=== PATIENT | female | born 1975 | race Caucasian/White ===

== ENCOUNTER 2019-09-25 18:03 | Emergency (ER) | payer OTHER, SELFPAY ==
[2019-09-25 18:05] VITALS: BP 124/85; PULSE 109; RESP 20; TEMP 36.6; O2SAT 97; BMI 23.9
[2019-09-25 18:22] LABS: Microscopic, Urine URINE MICROSCOPIC (MICROSCOPIC)
--- NOTE | 2019-09-25 18:24 | HMH.EDABDPAI ---
ED Disposition Clinical Impression: Abdominal pain Qualifiers: Abdominal location: right upper quadrant Qualified Code(s): R10.11 - Right upper quadrant pain Disposition: Home, Self-Care Condition on Discharge: Good Instructions: DI for Abdominal Pain-Adult Additional Instructions: Follow-up with your GI doctor and/or general surgeon for further evaluation and management. Return to the emergency department for any acute new concerns. Referrals: Kianna Duke [Primary Care Provider] - 3 days - Critical Care Critical Care Time: No Attestation: On 09/25/19, the high probability of a clinically significant, sudden or life threatening deterioration of the following system(s) required my full and direct attention, intervention and personal management. The time I documented below is in addition to time spent performing reported procedures but includes the following listed in this critical care notation. Medical Decision Making - Medical Records Medical records reviewed: Yes: I reviewed the patient's medical records. - Vj Inquiry Pt receiving controlled substance: No Vital Signs: 09/25/19 18:05 Temperature 98 F Temperature Source Oral Pulse Rate [Right] 109 H Respiratory Rate 20 Blood Pressure [Right Arm] 124/85 Blood Pressure Mean [Right Arm] 98 02 Sat by Pulse Oximetry 97 - Lab Data Lab Results 09/25/19 18:17: Urine Color Yellow, Urine Appearance Clear, Urine pH 8.0, Ur Specific [place] 1.015, Urine Protein Negative, Urine Glucose (UA) Negative, Urine Ketones Negative, Urine Blood Negative, Urine Nitrate Negative, Urine Bilirubin Negative, Urine Urobilinogen 0.2, Ur Leukocyte Esterase Negative, Urine WBC Occasional, Amorphous Sediment Trace 09/25/19 18:17: Urine HCG, Qual Negative 09/25/19 18:24: WBC 9.2, RBC 4.60, Hgb 13.3, Hct 40.7, MCV 88.4, MCH 28.9, MCHC 32.7, RDW 12.6, Plt Count 282, MPV 7.8, Neut % (Auto) 62.9, Lymph % (Auto) 30.1, [place] % (Auto) 3.9, Eos % (Auto) 2.4, Baso % (Auto) 0.6, Neut # (Auto) 5.8, Lymph # (Auto) 2.8, [place] # (Auto) 0.4, Eos # (Auto) 0.2, Baso # (Auto) 0.1 09/25/19 18:24: Sodium 140, Potassium 3.9, Chloride 104, Carbon Dioxide 26, Anion Gap 13.9, BUN 10, Creatinine 1.00, Estimated Creat Clear 69, Estimated GFR 60, Est GFR ( Amer) 73, Glucose 99, Calcium 9.8, Total Bilirubin 0.4, AST 25, ALT 15, Alkaline Phosphatase 64, Total Protein 7.7, Albumin 4.8, Globulin 2.9, Albumin/Globulin Ratio 1.7, Lipase 86 Result diagrams: 09/25/19 18:24 09/25/19 18:24 Orders (Tests/Meds): ED MEDICATIONS Discontinued Medications Generic Name Dose Route Start Last Admin Trade Name Freq PRN Reason Stop Dose Admin Ioversol 75 ml 09/25/19 18:49 09/25/19 18:50 Rad-Optiray 350 100ml Vial IV 09/25/19 18:50 75 ml ONCE ONE Administration Protocol Sodium Chloride 10 ml 09/25/19 18:49 09/25/19 18:50 Rad-Saline Flush 10ml Syringe IV 09/25/19 18:50 10 ml ONCE ONE Administration ORDERS Category Date Time Status CT abdomen pelvis w con Stat Cat Scan 09/25/19 18:30 Taken - CT Data CT Scan: Abdomen, Pelvis Time Received: 19:[address] Reviewed: Yes: I have reviewed the patient's CT results Findings Narrative: No acute findings. Medical Decision Narrative: Labs are reassuring with no signs of biliary obstruction, choledocholithiasis, no significant leukocytosis that would suggest acute intra-abdominal infection. CT scan shows no signs of diverticulitis, dropped biliary stone, perforated viscus, bowel obstruction, other acute intra-abdominal process. Urinalysis with no infection. Discharged home to follow-up outpatient with GI and/or general surgery for further evaluation. Abdominal Pain HPI - General Stated Complaint: Nausa.Abd pain Time Seen by Provider: 09/25/19 18:24 Mode of Arrival: Ambulatory Source of Information: Patient Limitations: No Limitations - History of Present Illness HPI narrative: This is a 44-year-old female wi
[2019-09-25 18:27] LABS: Appearance,Urine CLEAR (Clear); Bilirubin,Urine Negative (Negative); Blood, Urine Negative (Negative); Color,Urine YELLOW (Yellow); Glucose,Urine (UA) Negative (Negative); Ketones,Urine Negative (Negative); Leukocyte Esterase,Urine Negative (Negative); Nitrate,Urine Negative (Negative); Protein,Urine Negative (Negative); Specific Gravity, Urine 1.015 (1.005-1.030); Urobilinogen,Urine 0.2 EU/dl (0.2)
[2019-09-25 18:30] LABS: Amorphous Sediment,Urine Trace /lpf; Urine Pregnancy, HCG Qual. Negative (Negative); WBC,Urine Occasional #/hpf (0-3)
--- NOTE | 2019-09-25 18:30 | CT_ITS ---
PROCEDURE: CT ABDOMEN PELVIS W CON CLINICAL INDICATION: epigastric/RUQ pain Epigastric pain, right upper quadrant pain, nausea COMPARISON: No exams were available for comparison TECHNIQUE: IV Contrast: 75ML OPTIRAY 350 Oral Contrast none Axial images obtained with sagittal and coronal reformats. All CT scans at the facility use one or more dose reduction, viz: automated exposure control, ma/kV adjustment per patient size (including targeted exams where dose is matched to indication, i.e. head), or iterative reconstruction technique. FINDINGS: LOWER THORAX: 4 mm noncalcified nodules present in the right lower lobe anteriorly near the major fissure. There is minimal thickening of the pericardium ABDOMEN & PELVIS: Post cholecystectomy change. The liver, spleen, and adrenal glands have an unremarkable appearance. There is a 4 mm hypodensity in the mid aspect of the body of the pancreas. This is nonspecific and too small to categorize. There are multiple bilateral renal calculi measuring up to 4 mm in each kidney. No hydronephrosis. No ureteral calculi No intestinal obstruction or free air. No evidence of appendicitis or diverticulitis. The uterus is retroverted with an IUD in place. Scattered hyperdensities are present within the colon consistent with ingested material. There is a mild amount of retained colonic feces No acute bony anomaly. IMPRESSION: 1. Bilateral nonobstructing nephrolithiasis 2. 4 mm right lower lobe nodule. 3. IUD in place within the retroflexed uterus. 4. Mild amount of retained colonic feces. Dictated by: Jose Gaytan MD 09/26/2019 08:18 Electronically signed by Jose Gaytan MD in [place] 09/26/2019 08:18
[2019-09-25 18:32] LABS: Basophils # 0.1 K/mm3 (0-0.2); Basophils % 0.6 % (0.1-2.0); Eosinophils # 0.2 K/mm3 (0.0-0.4); Eosinophils % 2.4 % (0.1-12.0); Hematocrit 40.7 % (37.0-47.0); Hemoglobin 13.3 g/dL (12.2-16.2); Lymphocytes # 2.8 K/mm3 (0.7-4.5); Lymphocytes % 30.1 % (10-50); Mean Corpuscular HGB Conc 32.7 g/dL (31.8-35.4); Mean Corpuscular Hemoglobin 28.9 pg (27.0-31.2); Mean Corpuscular Volume 88.4 fl (81-99); Mean Platelet Volume 7.8 fl (7.4-10.4); Monocytes # 0.4 K/mm3 (0.1-1.0); Monocytes % 3.9 % (1.7-9.3); Neutrophils # 5.8 K/mm3 (1.8-7.8); Neutrophils % 62.9 % (37.0-80.0); Platelet Count 282 K/mm3 (142-424); Red Cell Distribution Width 12.6 % (11.5-17.5); White Blood Count 9.2 K/mm3 (4.8-10.8)
[2019-09-25 18:38] LABS: Chloride 104 mmol/L (98-107)
[2019-09-25 18:39] LABS: Potassium 3.9 mmoL/L (3.5-5.1); Sodium 140 mmol/L (136-145)
[2019-09-25 18:41] LABS: Alanine Aminotransferase 15 U/L (12-78); Aspartate Amino Transferase 25 U/L (14-36); Blood Urea Nitrogen 10 mg/dl (7-17); Creatinine Clearance Estimated 69 mL/min (50-200); Estimated Glomerular Filt Rate 60 ml/min (>60); GFR (African American) 73 ML/MIN (>60)
[2019-09-25 18:42] LABS: Albumin Level 4.8 g/dl (3.5-5.0); Albumin/Globulin Ratio 1.7 (1.1-1.8); Alkaline Phosphatase 64 U/L (38-126); Anion Gap 13.9 mEq/L (5-15); Bilirubin,Total 0.4 mg/dl (0.2-1.3); Calcium 9.8 mg/dl (8.4-10.2); Carbon Dioxide 26 mmol/L (22.0-30.0); Globulin 2.9 g/dL (1.3-3.2); Glucose 99 mg/dl (74-100); Lipase 86 U/L (23-300); Total Protein,Serum 7.7 g/dl (6.3-8.2)
[2019-09-25 20:27] VITALS: BP 124/91; PULSE 94; RESP 15; TEMP 36.7; O2SAT 97
== END 2019-09-25 20:30 | disposition home or self-care (01) ==
PROVIDERS: Emergency Provider Emergency Medicine; PCP Family Medicine
DX: R10.11 Right upper quadrant pain (principal); F41.9 Anxiety disorder, unspecified; Z88.2 Allergy status to sulfonamides; Z88.1 Allergy status to other antibiotic agents
CPT/HCPCS: 74177; 80053; 81001; 81025; 83690; 85025; 99283; Q9967

== ENCOUNTER → 2019-10-30 11:13 | Outpatient (CLI) | payer OTHER, SELFPAY ==
[2019-10-30 14:12] LABS: Coronavirus 19 IgG Antibody Negative (Negative); Coronavirus 19 IgM Antibody Negative (Negative)
== END ==
PROVIDERS: Visit Provider Internal Medicine Gastroenterology
DX: Z01.818 Encounter for other preprocedural examination (principal)
CPT/HCPCS: 36415; 86328

== ENCOUNTER 2019-11-02 13:13 | Day surgery (SDC) | payer OTHER, SELFPAY ==
--- NOTE | 2019-10-29 13:55 | SUR.PREOP ---
10/29/2019 @ 9027--PHONE CALL MADE TO PATIENT. PATIENT UNDERSTANDS THAT LAB WORK AND COVID TESTING NEEDS TO BE COMPLETED @ 1100 ON 10/30/2019. PATIENT UNDERSTANDS IF LAB WORK AND COVID-19 TESTS ARE NOT COMPLETED BY 12PM ON THAT DATE, THE SURGERY SCHEDULED WILL BE CANCELLED AND RESCHEDULED FOR ANOTHER TIME.
[2019-11-02] VITALS (7 sets, daily range): BP systolic 115–131; BP diastolic 75–84; PULSE 55–87; RESP 16–20; TEMP 36.4–37.1; O2SAT 98–100; BMI 24.4
--- NOTE | 2019-11-02 14:16 | FL_ITS ---
PROCEDURE: FL ERCP CLINICAL INDICATION: elevated enzymes, RUQ PAIN,NAUSEA COMPARISON: No exams were available for comparison FINDINGS: Fluoroscopy time: 1 minutes and 23 seconds Select images submitted from the ERCP showing normal caliber common bile duct. No obvious internal filling defects evident. There may be spasm at the sphincter of old E with abrupt termination of the distal aspect of the common bile duct. Please correlate with endoscopic findings. There has been a prior cholecystectomy. The cystic duct is not well demonstrated in the pancreatic duct was not cannulated. 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 Please correlate with endoscopic findings Dictated by: Jose Gaytan MD 11/12/2019 10:33 Electronically signed by Jose Gaytan MD in [place] 11/12/2019 10:33
--- NOTE | 2019-11-02 14:27 | HMH.PROC ---
[facility] Procedure Note Procedure Note:: ERCP procedure Report: Endoscopic retrograde cholangiopancreatography with biliary sphincterotomy and balloon extraction Endoscopist: Gerry House II, MD Referring Physician: Kianna Duke MD Date of Procedure: November 02, 2019 Equipment: Olympus 180 side viewing endoscope duodenoscope Sedation: MAC sedation Indication: Mrs. Figueroa is a 44-year-old female with right upper quadrant abdominal pain. She does state that this is very similar to her pain with gallbladder. She had cholecystectomy approximately 18 months ago (Dr. Vieira) at [facility] in [place]. The patient does report pain primarily below the right breast that does not radiate. She has never had pancreatitis. She does get some gassiness and belching. She also reports nausea and some early satiety. She reports mild bloating. She did have an upper endoscopy 6 months ago (Dr. Thomas Swan) which showed some mild gastritis. She has been followed by Dr. Devyn Luna at [facility]. She does have regular bowel function but does get some intermittent diarrhea. The patient does have PTSD and anxiety disorder and does take Lamictal and lithium. Procedure: Prior to the procedure, a history and physical exam was performed, and patient's medications and allergies were reviewed. The risks, benefits and alternatives of the sedation and procedure were discussed with the patient. All questions were answered and informed consent was obtained. The patient was brought to the fluoroscopic radiology room. Patient identification and proposed procedure were verified by the physician and the nurse. The patient was placed in a swimmer's position between left lateral decubitus and prone position and the scope was passed under direct vision. Throughout the procedure, the patient's blood pressure, pulse, and oxygen saturations were monitored continuously. The ERCP was accomplished without difficulty. The patient tolerated the procedure well. Findings: The side-viewing duodenal scope was passed directly into the upper esophagus and advanced to the second portion of the duodenum. There was a very small sliding hiatal hernia (insignificant). There was some peptic fluid/duodenal/biliary reflux with reactive gastropathy antrum of stomach. The duodenum was normal. There was an overlying fold covering a portion of the ampulla. The fold was removed and the ampulla was clearly seen and appeared normal. The common bile duct was selectively cannulated with a guidewire. The cholangiogram did show a 5 to 6 mm common bile duct. There were no filling defects. There was a long cystic duct stump. There was no strictures or intrahepatic filling defects. The intrahepatic biliary system appeared to be normal. There was delayed drainage of bile and contrast from the biliary system suggestive of sphincter of Oddi dysfunction. A generous biliary sphincterotomy was performed. There was extravasation of some bile and contrast. There were a couple of flecks of minor debris/sludge from the biliary system (minor choledocholithiasis). Next, a sweeping balloon was placed at the hilum of the biliary system and swept through the biliary system once with a 9 mm sweeping balloon with the passage of gray bile. There were no stones. The pancreatic duct was not cannulated intentionally. The procedure was ended. Impression: 1. 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 I will discuss dietary measures and treatment options. I will likely place her on low-dose Bentyl/dicyclo
--- NOTE | 2019-11-02 15:00 | P.PN_ITS ---
[facility] Anesthesia Checklist - Structural Data Admitted From: Home Planned Operative Procedure/s: ercp Consent for Planned Operative Procedure(s) Verified: Yes - Airway Assessment C-Spine Mobility Assessed: Yes TMJ Mobility Assessed: Yes Dentition: Good Dentition - Neurological Assessment Level of Consciousness: Awake, Alert, Appropriate - Anesthesia Plan Anesthesia Risk discussed: Yes Anesthesia Plan: Verified ASA Class: II Anesthesia Type: MAC [facility] History I have reviewed the patient's past medical history: Yes Medical History: Reports:: Anxiety, Kidney Stones Denies:: Cancer, Diabetes Mellitus Type 1, Diabetes Mellitus Type 2, Internal Pacemaker, MRSA, Seizures *Have you ever received a pneumonia vaccine?: No *Have you received a flu vaccine this season?: Yes Anesthesia experience/problems:: none Laterality Cases: Bilateral: Tonsillectomy Other Surgeries: Yes: Cholecystectomy, , Tubal Ligation, Other (Oophorectomy). No: Pacemaker Amputation: No Fractures: No - *Social History Alcohol Intake: never Substance Use Type: denies use *Occupational Status:: employed Housing: house Household Members: spouse *Travel in the last 8 weeks: None - Psychiatric History Pschychiatric History:: Reports:: Anxiety Family Hx:: No significant family history
== END 2019-11-02 15:55 | disposition home or self-care (01) ==
LOC: OUTP 13:14
PROVIDERS: PCP Family Medicine; Visit Provider Internal Medicine Gastroenterology
PROC: (CPT 43262; principal; 2019-11-02 13:30)
DX: K80.50 Calculus of bile duct without cholangitis or cholecystitis without obstruction; K92.9 Disease of digestive system, unspecified; K21.9 Gastro-esophageal reflux disease without esophagitis; K31.9 Disease of stomach and duodenum, unspecified; Z90.49 Acquired absence of other specified parts of digestive tract; Z87.19 Personal history of other diseases of the digestive system; F43.10 Post-traumatic stress disorder, unspecified; F41.9 Anxiety disorder, unspecified; Z79.899 Other long term (current) drug therapy; Z87.442 Personal history of urinary calculi; Z83.3 Family history of diabetes mellitus; Z82.49 Family history of ischemic heart disease and other diseases of the circulatory system
CPT/HCPCS: 43262; 43264; 74330; Q9967

== ENCOUNTER → 2020-01-14 10:38 | Outpatient (CLI) | payer OTHER, SELFPAY ==
[2020-01-14 14:31] LABS: Coronavirus 19 IgG Antibody Negative (Negative); Coronavirus 19 IgM Antibody Negative (Negative)
== END ==
PROVIDERS: Visit Provider Internal Medicine Gastroenterology
DX: Z01.818 Encounter for other preprocedural examination (principal); Z12.11 Encounter for screening for malignant neoplasm of colon
CPT/HCPCS: 36415; 86328

== ENCOUNTER 2020-01-15 10:54 | Day surgery (SDC) | payer OTHER, SELFPAY ==
[2020-01-11 13:02] VITALS: BMI 26.4
[2020-01-15] VITALS (7 sets, daily range): BP systolic 101–131; BP diastolic 62–75; PULSE 53–86; RESP 18; TEMP 36.3–36.7; O2SAT 97–100
[2020-01-15 11:58] LABS: Urine Pregnancy, HCG Qual. Negative (Negative)
--- NOTE | 2020-01-15 13:42 | P.PCN_ITS ---
[facility] Procedure Note Procedure Note:: Colonoscopy Procedure Report: Colonoscopy with cold biopsies and cold snare polypectomy Endoscopist: Gerry House II, MD Referring physician: Kianna Duke MD Date of Procedure: January 15, 2020 Equipment: Olympus 180 variable stiffness pediatric colonoscope Sedation: MAC sedation Indication: Mrs. Figueroa is a 44-year-old female who was previously having right upper quadrant abdominal pain similar to gallbladder pain. She had undergone cholecystectomy in [place] (Dr. Daly at [facility]) 1-1/2 years ago but her pain remained below the right breast. She was referred for possible sphincter of Oddi dysfunction which was treated by ERCP on November 02, 2019. Her right upper quadrant abdominal pain significantly improved and resolved. The patient also had nausea and fullness which has improved. She now has more chronic frequent diarrhea. She reports no crampy discomfort. She has reduced gassiness and bloating. She reports no rectal bleeding but does note occasional mucus. She reports no family history of colitis, Crohn's disease or colon cancer. This is her first colonoscopy which is performed for diagnostic purposes. Procedure: Prior to the procedure, a history and physical exam was performed, and patient's medications and allergies were reviewed. The risks, benefits and alternatives of the sedation and procedure were discussed with the patient. All questions were answered and informed consent was obtained. The patient was brought to the procedure room. Patient identification and proposed procedure were verified by the physician and the nurse. The patient was placed in a left lateral decubitus position and the scope was passed under direct vision. Throughout the procedure, the patient's blood pressure, pulse, and oxygen saturations were monitored continuously. The colonoscopy was accomplished without difficulty. The patient tolerated the procedure well. Findings: On digital rectal examination there was normal rectal tone. There were no external hemorrhoids. The colonoscope was introduced through the anal canal to the rectum and advanced to the cecum. The ileocecal valve and appendiceal orifice were identified. The scope was advanced a short distance into the ileum which appeared grossly normal. The scope was then withdrawn into the colon. The cecum, ascending, transverse, descending and sigmoid colon were grossly normal. Cold biopsies were taken from the right colon to rule out microscopic colitis. There was a 3 mm diminutive polyp in the rectum that appeared hyperplastic and was removed via cold snare polypectomy. There were no mucosal abnormalities identified. Upon retroflexion within the rectum there were grade 1 internal hemo rrhoids.The preparation was excellent throughout with [place] Preparation Score of 9. The cecal time was 12 minutes. Impression: 1. Diminutive hyperplastic appearing rectal polyp 2. Normal l colonoscopy with intubation of the terminal ileum 3. Grade 1 internal hemorrhoids Plan: I will follow-up the biopsies to rule out microscopic colitis. If these are normal, I would consider adding Colestid 2 g p.o. daily or twice daily to control this diarrhea. The polyp is hyperplastic and thus she will not require preventive/screening colonoscopy again until age 50.
--- NOTE | 2020-01-15 14:23 | P.PN_ITS ---
[facility] Anesthesia Checklist - Patient Identification Patient Identification: Arm Band - Structural Data Admitted From: Home Planned Operative Procedure/s: colonoscopy Consent for Planned Operative Procedure(s) Verified: Yes Verified Documents: Surgical Consent, History and Physical - NPO Status Verified Time NPO: 00:00 - Additional verifications Anesthesia Reactions: No - Airway Assessment C-Spine Mobility Assessed: Yes (mp2) TMJ Mobility Assessed: Yes Dentition: Good Dentition - Neurological Assessment Level of Consciousness: Awake, Alert - Anesthesia Plan Anesthesia Risk discussed: Yes Anesthesia Plan: Verified ASA Class: II Anesthesia Type: MAC [facility] History I have reviewed the patient's past medical history: Yes Medical History: Reports:: Anxiety, Kidney Stones Denies:: Cancer, Diabetes Mellitus Type 1, Diabetes Mellitus Type 2, Internal Pacemaker, MRSA, Seizures *Have you ever received a pneumonia vaccine?: No *Have you received a flu vaccine this season?: Yes Anesthesia experience/problems:: nac Laterality Cases: Bilateral: Tonsillectomy Other Surgeries: Yes: Cholecystectomy, , Tubal Ligation, Other (Oophorectomy). No: Pacemaker Amputation: No Fractures: No - *Social History Last grade of school completed: Advanced degree Alcohol Intake: current Alcohol Intake Frequency:: holidays/special occasions only Substance Use Type: denies use *Occupational Status:: employed Housing: house Household Members: spouse *Travel in the last 8 weeks: None - Psychiatric History Pschychiatric History:: Reports:: Anxiety Family Hx:: No significant family history
== END 2020-01-15 14:45 | disposition home or self-care (01) ==
LOC: OUTP 10:54
PROVIDERS: PCP Family Medicine; Visit Provider Internal Medicine Gastroenterology
PROC: 0DJD8ZZ Inspection of Lower Intestinal Tract, Via Natural or Artificial Opening Endoscopic (ICD-10-PCS; CPT 45378; principal; 2020-01-15 12:00)
DX: Z90.49 Acquired absence of other specified parts of digestive tract; K64.0 First degree hemorrhoids; K62.1 Rectal polyp; Z88.1 Allergy status to other antibiotic agents; Z88.2 Allergy status to sulfonamides; Z88.8 Allergy status to other drugs, medicaments and biological substances; Z79.899 Other long term (current) drug therapy
CPT/HCPCS: 45385; 81025

== ENCOUNTER → 2020-05-23 09:26 | Outpatient (CLI) | payer OTHER, SELFPAY ==
--- NOTE | 2020-05-23 09:31 | CT_ITS ---
PROCEDURE: CT CHEST W CON Referring Doctor: Kianna Duke Patient Age:44Y CLINICAL HISTORY: LUNG NODULE follow-up COMPARISON: CT CT ABDOMEN PELVIS W CON from 09/25/2019 TECHNIQUE: 75 cc Isovue 370 IV contrast utilized with subsequent helicalAxial images obtained with sagittal and coronal reformats on CT workstation. All CT scans at the facility use one or more dose reduction, viz: automated exposure control, ma/kV adjustment per patient size (including targeted exams where dose is matched to indication, i.e. head), or iterative reconstruction technique. FINDINGS: Lungs Right lung. Small stablebenign appearing nodule along the inferior margin major fissure again seen sagittal image 18, axial 49. This benign-appearing 'fissural nodule' unchanged, stable since September 2019 CT. It measures up to to 4.5 mm maximally on the sagittal view; I would also note is fairly dense for size and thus could reflect a developing granuloma. Fissural nodules of this size and character of are benign features and require no additional follow-up No additional pulmonary nodules or findings of concern at either right or left lung field. Scant scarring is seen at right base just above diaphragm accounting for appearance here. No focal infiltrate. No consolidation. No pneumonia. Airways appear satisfactory. No hilar or mediastinal adenopathy. Heart normal size no pericardial effusion. No pleural effusion or pleural thickening. Chest wall appears satisfactory no rib fractures or lesions identified. T-spine intact, with only scant degenerative disc changes mid T-spine. Mild facet hypertrophy lower T-spine at T10-11 indents the posterior aspect of thoracic canal. Very gradual subtle dextrocurvature T-spine. Upper abdomen. Cholecystectomy, fatty changes the liver. IMPRESSION: 1. No active disease in the chest. No areas of concern 2.. Stable small 4.5 mm right benign fissural nodule-unchanged since September Small benign fissure nodules of this character require no additional follow-up Dictated by: Eulogio Walker MD 05/25/2020 08:26 Eulogio Walker MD in [place] 05/25/2020 08:26
== END ==
PROVIDERS: PCP Family Medicine; Visit Provider Family Medicine
DX: R91.1 Solitary pulmonary nodule (principal)
CPT/HCPCS: 71260; Q9967

== ENCOUNTER 2020-09-02 18:35 | Emergency (ER) | payer OTHER, SELFPAY ==
--- NOTE | 2020-09-02 18:34 | ECG_ITS ---
APPROVED REPORT Exam: Resting ECG HR:101 bpm ECG Measurements Heart Rate 101 AXES VA 150 P 40 QRSd 70 QRS 66 QT 366 T 48 QTc 474 Conclusion Sinus tachycardia T wave abnormality, consider anterior ischemia Abnormal ECG Electronically signed by : Dheeraj Enriquez, 09/03/2020 08:40:17
[2020-09-02 18:35] VITALS: BP 130/74; PULSE 75; RESP 18; TEMP 36.9; O2SAT 98; BMI 22.4
--- NOTE | 2020-09-02 18:41 | XR_ITS ---
PROCEDURE: XR CHEST 2V CLINICAL HISTORY: chest pain Chest pain, shortness of air COMPARISON: CT CT CHEST W CON from 05/23/2020 FINDINGS: The cardiomediastinal silhouette and pulmonary vascularity are within normal limits. The lungs are clear without infiltrates, suspicious nodules, or pleural effusions. No acute bony abnormalities. IMPRESSION: No acute findings. Dictated by: Jose Gaytan MD 09/03/2020 07:24 Jose Gaytan MD in [place] 09/03/2020 07:26
[2020-09-02 18:50] LABS: Basophils % 0.3 % (0.1-2.0); Eosinophils # 0.3 K/mm3 (0.0-0.4); Eosinophils % 2.7 % (0.1-12.0); Hematocrit 41.3 % (37.0-47.0); Hemoglobin 13.2 g/dL (12.2-16.2); Lymphocytes # 2.3 K/mm3 (0.7-4.5); Lymphocytes % 18.6 % (10-50); Mean Corpuscular HGB Conc 31.9 g/dL (31.8-35.4); Mean Corpuscular Hemoglobin 28.5 pg (27.0-31.2); Mean Corpuscular Volume 89.2 fl (81-99); Mean Platelet Volume 7.5 fl (7.4-10.4); Monocytes # 0.5 K/mm3 (0.1-1.0); Monocytes % 3.8 % (1.7-9.3); Neutrophils # 9.3 K/mm3 (1.8-7.8); Neutrophils % 74.6 % (37.0-80.0); Platelet Count 262 K/mm3 (142-424); Red Blood Count 4.63 M/mm3 (4.20-5.40); Red Cell Distribution Width 13.4 % (11.5-17.5); White Blood Count 12.5 K/mm3 (4.8-10.8)
[2020-09-02 18:55] LABS: Chloride 105 mmol/L (98-107); Potassium 3.9 mmoL/L (3.5-5.1); Sodium 138 mmol/L (136-145)
[2020-09-02 18:58] LABS: Anion Gap 10.9 mEq/L (5-15); Blood Urea Nitrogen 10 mg/dl (7-17); Calcium 9.4 mg/dl (8.4-10.2); Carbon Dioxide 26 mmol/L (22.0-30.0); Estimated Glomerular Filt Rate 78 ml/min (>60); GFR (African American) 94 ML/MIN (>60); Glucose 123 mg/dl (74-100)
[2020-09-02 19:16] LABS: Troponin I < 0.01 ng/ml (0.00-0.034)
--- NOTE | 2020-09-02 19:16 | HMH.EDCP ---
ED Disposition Clinical Impression: Atypical chest pain Disposition: Still a Patient Condition on Discharge: Good Referrals: Kianna Duke [Primary Care Provider] - - Critical Care Critical Care Time: No Attestation: On 09/02/20, the high probability of a clinically significant, sudden or life threatening deterioration of the following system(s) required my full and direct attention, intervention and personal management. The time I documented below is in addition to time spent performing reported procedures but includes the following listed in this critical care notation. Medical Decision Making - Medical Records Medical records reviewed: Yes: I reviewed the patient's medical records. - Vj Inquiry Pt receiving controlled substance: No Vital Signs: 09/02/20 18:35 Temperature 98.4 F Temperature Source Oral Pulse Rate [Left Radial] 75 Respiratory Rate 18 Blood Pressure [Right Arm] 130/74 Blood Pressure Mean [Right Arm] 92 Blood Pressure Source [Right Arm] Automatic Cuff Blood Pressure Position [Right Arm] Sitting 02 Sat by Pulse Oximetry 98 Oxygen Delivery Method Room Air - Lab Data Lab Results 09/02/20 18:37: WBC 12.5 H, RBC 4.63, Hgb 13.2, Hct 41.3, MCV 89.2, MCH 28.5, MCHC 31.9, RDW 13.4, Plt Count 262, MPV 7.5, Neut % (Auto) 74.6, Lymph % (Auto) 18.6, [place] % (Auto) 3.8, Eos % (Auto) 2.7, Baso % (Auto) 0.3, Neut # (Auto) 9.3 H, Lymph # (Auto) 2.3, [place] # (Auto) 0.5, Eos # (Auto) 0.3, Baso # (Auto) 0.0 09/02/20 18:37: Sodium 138, Potassium 3.9, Chloride 105, Carbon Dioxide 26, Anion Gap 10.9, BUN 10, Creatinine 0.80, Estimated GFR 78, Est GFR ( Amer) 94, Glucose 123 H, Calcium 9.4, Troponin I < 0.01 Result diagrams: 09/02/20 18:37 09/02/20 18:37 Orders (Tests/Meds): ED MEDICATIONS Discontinued Medications Generic Name Dose Route Start Last Admin Trade Name Freq PRN Reason Stop Dose Admin Belladonna Alkaloids 60 ml 09/02/20 20:09 09/02/20 20:46 Gi Cocktail 60ml Udc PO 09/02/20 20:10 60 ml ONCE ONE Administration Iopamidol 70 ml 09/02/20 19:47 09/02/20 19:48 Iopamidol-370 (76%);100ml Bottle IV 09/02/20 19:48 70 ml ONCE ONE Administration Ketorolac Tromethamine 30 mg 09/02/20 20:09 09/02/20 20:46 Ketorolac 30mg/Ml Vial IV 09/02/20 20:10 30 mg ONCE ONE Administration Sodium Chloride 50 ml 09/02/20 19:47 09/02/20 19:48 0.9 % Sodium Chloride 50 Ml Vial IV 09/02/20 19:48 50 ml ONCE ONE Administration Sodium Chloride 10 ml 09/02/20 19:47 09/02/20 19:48 Sodium Chloride 0.9% 10ml Syr (Rad Only) IV 09/02/20 19:48 10 ml ONCE ONE Administration ORDERS Category Date Time Status CTA Chest [CT angio chest] Stat Cat Scan 09/02/20 19:17 Taken Chest XR 2 view (NOT portable) [XR chest 2V] Stat Exams 09/02/20 18:41 Taken Troponin I Q3H Lab 09/02/20 21:13 Received Troponin I Q3H Lab 09/03/20 00:45 Ordered - Radiology Data #1 Image(s): Chest Image Reviewed: Yes I reviewed the patient's radiology image Preliminary Findings: Normal/NAD - ECG Data Tracing #1 I reviewed this ECG and interpreted as documented below: Normal sinus rhythm with no evidence of ST segment changes concerning for ischemia no significant T wave abnormalities and no evidence of arrhythmia. She does have T wave inversions in the anterior leads but they are benign appearing. Medical Decision Narrative: 45-year-old female who presents with a history of anxiety with substernal chest pain worse with taking a deep breath. She is well-appearing nontoxic on initial examination hemodynamically stable with vital signs. Differential include ACS, aortic dissection, pulmonary embolism, pneumonia, pneumothorax, anxiety exacerbation, and others. Chest x-ray demonstrates no acute abnormalities or focal airspace disease. Her initial troponin is undetectable and there is no acute correctable results on laboratory evaluation. CT demonstrates no ac
--- NOTE | 2020-09-02 19:17 | CT_ITS ---
PROCEDURE: CT ANGIO CHEST CLINCIAL INDICATION: chest pain to back Chest pain COMPARISON: CT CT CHEST W CON from 05/23/2020 TECHNIQUE: IV Contrast: 70ML Isovue 370 Axial images obtained with sagittal and coronal reformats. All CT scans at the facility use one or more dose reduction, viz: automated exposure control, ma/kV adjustment per patient size (including targeted exams where dose is matched to indication, i.e. head), or iterative reconstruction technique. FINDINGS: HEART AND MEDIASTINAL STRUCTURES: No evidence of pulmonary embolus, aortic aneurysm, or aortic dissection. LUNGS AND PLEURAL SPACES: Stable 4 mm nodule right lower lobe anteriorly in the subpleural region of the major fissure. Calcified granuloma left upper lobe. There is a pleural-based nodular opacity in the left lower lobe posteriorly at 7 mm nonspecific not readily apparent on the previous exam. BONY STRUCTURES: Mild degenerative changes thoracic spine UPPER ABDOMEN: Nonobstructing left renal calculi at 3 and 4 mm. ADDITIONAL FINDINGS: No other significant abnormalities. IMPRESSION: 1. No evidence of pulmonary embolus or aortic aneurysm or dissection. 2. Stable right upper lobe nodule. New subpleural nodular opacity left lower lobe nonspecific. Stability may be confirmed with 3 to six-month follow-up. Dictated by: Jose Gaytan MD 09/03/2020 09:33 Jose Gaytan MD in [facility] 09/03/2020 09:33
[2020-09-02 19:30] VITALS: BP 112/72; PULSE 85; RESP 16; O2SAT 99
[2020-09-02 21:03] VITALS: BP 127/85; PULSE 81; RESP 16; O2SAT 99
[2020-09-02 21:30] VITALS: BP 122/87; PULSE 88; RESP 16; O2SAT 99
[2020-09-02 21:49] LABS: Troponin I < 0.01 ng/ml (0.00-0.034)
[2020-09-02 22:28] VITALS: BP 106/68; PULSE 85; RESP 16; TEMP 36.7; O2SAT 99
== END 2020-09-02 22:30 | disposition home or self-care (01) ==
PROVIDERS: Emergency Provider Student in an Organized Health Care Education/Training Program; PCP Family Medicine
DX: R07.89 Other chest pain (principal); K29.70 Gastritis, unspecified, without bleeding; F41.9 Anxiety disorder, unspecified; Z87.442 Personal history of urinary calculi
CPT/HCPCS: 71046; 71275; 80048; 84484; 85025; 93005; 96374; 99283; Q9967